=== PATIENT | male | born 1995 | race Caucasian/White ===

== ENCOUNTER 2018-01-17 16:03 | Emergency (ER) | payer BC ==
[2018-01-17 16:20] VITALS: BP 135/76; PULSE 88; RESP 16; TEMP 98; O2SAT 100
--- NOTE | 2018-01-17 16:51 | ED PDOC ---
HPI: Eye Injury/Pain Time Seen by Provider: 01/17/18 16:09 Chief Complaint (Nursing): Foreign Body Chief Complaint (Provider): Foreign Body History Per: Patient History/Exam Limitations: no limitations Onset/Duration Of Symptoms: Hrs (3x hours) Current Symptoms Are (Timing): Still Present Injury To Eye?: No Severity: Moderate Associated Symptoms: denies: Pain Additional Complaint(s): 22 year old male with no past medical history presents to the ED for an evaluation of a foreign body in his right eye. Patient states that earlier today, he was drilling into a piece of metal at work, and a piece of metal flew into his eye. Patient tried flushing it out with water, and went to an Urgent Care where his provider tried getting it out with a cotton swab, but was unable to, prompting his ED visit today. Patient denies having eye pain. Tetanus is not up to date. PMD: None provided Past Medical History Reviewed: Historical Data, Nursing Documentation, Vital Signs Vital Signs: Last Vital Signs Temp 98.0 F 01/17/18 16:17 Pulse 88 01/17/18 16:17 Resp 16 01/17/18 16:17 BP 135/76 01/17/18 16:17 Pulse Ox 100 01/17/18 16:17 - Medical History PMH: No Chronic Diseases - Family History Family History: States: No Known Family Hx - Social History Alcohol: Social - Immunization History Hx Tetanus Toxoid Vaccination: No (not up to date) - Home Medications Home Medications: Ambulatory Orders Medication Instructions Recorded Erythromycin 0.5% [Erythromycin] 0 applic OU 5XD #1 tube 01/17/18 - Allergies Allergies/Adverse Reactions: Allergies Allergy/AdvReac Type Severity Reaction Status Date / Time No Known Allergies Allergy Verified 01/17/18 16:16 Review of Systems ROS Statement: Except As Marked, All Systems Reviewed And Found Negative Eyes: Positive for: Other (foreign object in right eye) Physical Exam - Reviewed Nursing Documentation Reviewed: Yes Vital Signs Reviewed: Yes - Physical Exam Appears: Positive for: Well, Non-toxic, No Acute Distress Head Exam: Positive for: ATRAUMATIC, NORMOCEPHALIC Skin: Positive for: Normal Color, Warm, Dry Neurologic/Psych: Positive for: Alert, Oriented (3x) - ECG O2 Sat by Pulse Oximetry: 100 (RA) Pulse Ox Interpretation: Normal Medical Decision Making Medical Decision Makin:09 Initial impression: 22 year old male with a foreign object in his right eye. Initial plan: FB removed by investigative writer without difficulty after tetracaine drops applied. No uptake noted on stain after FB removal Scribe Attestation: Documented by Roxy Torrez, acting as a scribe for Samreen John Provider Scribe Attestation: All medical record entries made by the Scribe were at my direction and personally dictated by me. I have reviewed the chart and agree that the record accurately reflects my personal performance of the history, physical exam, medical decision making, and the department course for this patient. I have also personally directed, reviewed, and agree with the discharge instructions and disposition. Disposition - Clinical Impression Clinical Impression: Foreign body in eye - Patient ED Disposition Is Patient to be Admitted: No - Disposition Disposition: Routine/Home Disposition Time: 18:39 Condition: STABLE Prescriptions: Erythromycin 0.5% [Erythromycin] 0 applic OU 5XD #1 tube Instructions: Foreign Body in Eye (DC) Forms: [employer] ([place])
[2018-01-17] MEDS ORDERED: Fluorescein 1 mg Ophthalmic Strip ONE (17:19)
[2018-01-17] MEDS ORDERED: Tetracaine 0.5% Ophth 2 ML BOTTLE ONE (17:25)
== END 2018-01-17 18:03 | disposition home or self-care (01) ==
LOC: H.ER 16:03
DX: T15.01XA Foreign body in cornea, right eye, initial encounter (principal)